=== PATIENT | female | born 2000 | race Caucasian/White ===

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

== ENCOUNTER → 2022-03-15 | Outpatient (CLI) | payer BC ==
[2022-03-15 19:37] LABS: BASO # 0.05 K/mm3 (0.02-0.10); EOS # 0.15 K/mm3 (0.04-0.40); EOS % 1.5 % (0.1-4.0); HEMATOCRIT 39.4 % (35.0-45.0); HEMOGLOBIN 13.8 g/dL (12.0-15.0); LYMPH# 2.41 K/mm3 (1.20-3.40); MEAN CELL VOLUME 90 fl (78-95); MEAN CORPUSCULAR HEMOGLOBIN 31 pg (26-32); MEAN CORPUSCULAR HGB CONC 35 g/dL (33-37); MEAN PLATELET VOLUME 9.6 fl (7.4-10.4); MONO # 0.71 K/mm3 (0.10-0.60); NEU # 6.46 K/mm3 (1.40-6.50); PLATELET COUNT 300 K/mm3 (130-400); RED CELL DISTRIBUTION WIDTH 11.7 % (11.5-14.5); WHITE BLOOD COUNT 9.8 K/mm3 (4.8-10.8)
[2022-03-15 19:51] LABS: ALBUMIN 4.4 g/dL (3.5-5.0); POTASSIUM 3.9 mmol/L (3.5-5.1)
[2022-03-15 19:52] LABS: PROTHROMBIN TIME 9.7 SECONDS (9.0-12.0)
[2022-03-15 19:53] LABS: CALCIUM 9.6 mg/dL (8.3-10.5)
[2022-03-15 19:54] LABS: TOTAL PROTEIN 7.5 g/dL (6.4-8.3)
[2022-03-15 19:56] LABS: TOTAL BILIRUBIN 0.4 mg/dL (0.2-1.2)
== END ==
LOC: LAB 19:27
PROVIDERS: Nurse Practitioner Family
DX: R53.83 Other fatigue (principal); R23.3 Spontaneous ecchymoses

== ENCOUNTER 2023-10-26 21:00 | Emergency (ER) | payer OTHER ==
[~2023-10-26] VITALS: Ht 162.6 cm; Wt 54.5 kg
[2023-10-26] MEDS ORDERED: IBU800 M1 PO (21:11)
[2023-10-26 21:30] LABS: BASO # 0.06 K/mm3 (0.02-0.10); EOS # 0.03 K/mm3 (0.04-0.40); EOS % 0.4 % (1.0-5.0); HEMATOCRIT 38.6 % (37.0-47.0); HEMOGLOBIN 14.3 g/dL (12.5-16.0); LYMPH# 1.49 K/mm3 (1.50-4.00); MEAN CELL VOLUME 89 fl (78-100); MEAN CORPUSCULAR HEMOGLOBIN 33 pg (27-31); MEAN CORPUSCULAR HGB CONC 37 g/dL (33-37); MEAN PLATELET VOLUME 9.9 fl (7.4-10.4); MONO # 0.49 K/mm3 (0.20-0.80); PLATELET COUNT 260 K/mm3 (130-400); RED BLOOD COUNT 4.32 M/mm3 (4.10-5.30); RED CELL DISTRIBUTION WIDTH 11.1 % (11.5-14.5); WHITE BLOOD COUNT 7.9 K/mm3 (4.8-10.8)
[2023-10-26 21:38] LABS: ALBUMIN 4.7 g/dL (3.5-5.0)
[2023-10-26 21:40] LABS: CALCIUM 9.6 mg/dL (8.3-10.5)
[2023-10-26 21:41] LABS: TOTAL PROTEIN 7.5 g/dL (6.4-8.3)
[2023-10-26 21:43] LABS: TOTAL BILIRUBIN 0.8 mg/dL (0.2-1.2)
[2023-10-27 00:11] LABS: PH-URINE 5.5 (5.0 - 8.0); URINE APPEARANCE CLEAR (CLEAR); URINE COLOR YELLOW (YELLOW); URINE GLUCOSE NEGATIVE (NEGATIVE); URINE KETONE TRACE (NEGATIVE); URINE PROTEIN(semi-quant) TRACE (NEGATIVE)
[2023-10-27 00:12] LABS: URINE BILIRUBIN NEGATIVE (NEGATIVE); URINE BLOOD NEGATIVE (NEGATIVE); URINE LEUKOCYTE ESTERASE NEGATIVE (NEGATIVE); URINE NITRATE NEGATIVE (NEGATIVE)
[2023-10-27] MEDS ORDERED: CIPRO250 M1 PO (00:20)
[2023-10-27] MEDS ORDERED: ONDANSETRON HYDR4 MG PO (00:22)
[2023-10-27 00:50] VITALS: BP 100/71
== END 2023-10-27 00:50 | disposition home or self-care (01) ==
LOC: ED 21:00
PROVIDERS: Physician Assistant
DX: N39.0 Urinary tract infection, site not specified (principal); R11.2 Nausea with vomiting, unspecified; Z88.0 Allergy status to penicillin
CPT/HCPCS: J2405; J7030